=== PATIENT | female | born 1955 | race Caucasian/White ===

== ENCOUNTER 2016-11-11 02:27 | Observation (INO) | payer OTHER ==
[~2016-11-11] VITALS: Ht 165.1 cm; Wt 72.0 kg
[2016-11-11] VITALS (10 sets, daily range): BP systolic 171–206; BP diastolic 81–99; PULSE 66–94; RESP 16–18; TEMP 97.5–98.6; O2SAT 96–99
[~2016-11-11 02:27] MED LIST: ATOR1TAB18 PO; BUTA1CAP PO; DICY10 PO; FURO20TA PO; I-VITAB2; LEVEMIR SQ; LISI10TA3 PO; MOBI15TA PO; OYST500T77 PO; POTA10CA PO; SINE10100 PO; TEMA15CA PO
[2016-11-11] MEDS ORDERED: TRAM50TA PO (03:02)
[2016-11-11] MEDS ORDERED: PROT40TA PO (03:02)
[2016-11-11] MEDS ORDERED: DICY10 PO (03:02)
[2016-11-11] MEDS ORDERED: LORA1TAB12 PO (03:02)
[2016-11-11] MEDS ORDERED: ASPIRIN 81 MG CHEW TAB CHEW ONE (03:15)
[2016-11-11] MEDS ORDERED: SODIUM CHLORIDE 0.9% FLUSH 5 ML FLUSH IVF PRN ×2 (03:15→05:15)
[2016-11-11] MEDS ORDERED: METOCLOPRAMIDE INJ 10 MG in SODIUM CHLORIDE 0.9% INJ 50 ML IV ONE (03:15)
[2016-11-11] MEDS ORDERED: SODIUM CHLOR 0.9% 1000 ML INJ 1,000 ML IV ONE (03:15)
[2016-11-11] MEDS ORDERED: diphenhydrAMINE HCL 50 MG/ML VIAL IV PUSH ONE (03:15)
[2016-11-11 03:18] LABS: AUTOMATED NEUTROPHIL # 7.4 TH/MM3 (1.8-7.7); BASOPHIL # 0.1 TH/MM3 (0-0.2); BASOPHIL % 1.1 % (0.0-2.0); EOSINOPHIL # 0.2 TH/MM3 (0-0.4); HEMATOCRIT 40.4 % (35.0-46.0); HEMO FLAGS DIFF FINAL; LYMPH % 26.7 % (9.0-44.0); LYMPHOCYTE # 3.1 TH/MM3 (1.0-4.8); MEAN CELL VOLUME 91.4 FL (80.0-100.0); MEAN CORPUSCULAR HEMOGLOBIN 31.3 PG (27.0-34.0); MEAN CORPUSCULAR HGB CONC 34.2 % (32.0-36.0); MONO % 6.6 % (0.0-8.0); NEUT % 63.6 % (16.0-70.0); PLATELET COUNT 325 TH/MM3 (150-450); RED BLOOD COUNT 4.42 MIL/MM3 (4.00-5.30); RED CELL DISTRIBUTION WIDTH 12.7 % (11.6-17.2); WHITE BLOOD COUNT 11.6 TH/MM3 (4.0-11.0)
[2016-11-11 03:26] LABS: APTT (PATIENT) 25.4 SEC (24.3-30.1); PROTHROMBIN TIME - PATIENT 10.5 SEC (9.8-11.6)
--- NOTE | 2016-11-11 03:27 | RADRPT ---
EXAM DATE/TIME: 11/11/2016 03:16 [place] COMPARISON: No previous studies available for comparison. INDICATIONS : Pt having vomiting and upper abdominal pain. MEDICAL HISTORY : Hypertension. HIV. SURGICAL HISTORY : Tonsillectomy. ENCOUNTER: Initial ACUITY: 1 day PAIN SCORE: 8/10 LOCATION: Bilateral chest FINDINGS: The cardiac silhouette is enlarged in transverse diameter. The lungs are free of acute parenchymal op acity. No effusions are identified. Osseous structures are intact. CONCLUSION: Cardiomegaly. No acute cardiopulmonary disease. Ramon Nava MD on November 11, 2016 at 3:25 Board Certified Radiologist. This report was verified electronically.
[2016-11-11 03:36] LABS: ALT (GPT) 23 U/L (10-53); ANION GAP 9 MEQ/L (5-15); AST (GOT) 13 U/L (15-37); BICARBONATE 25.6 MEQ/L (21.0-32.0); BLOOD UREA NITROGEN 24 MG/DL (7-18); CHLORIDE 99 MEQ/L (98-107); GLOMERULAR FILTRATION RATE 38 ML/MIN (>89); MAGNESIUM 1.5 MG/DL (1.5-2.5); SODIUM (NA) 134 MEQ/L (136-145)
[2016-11-11 03:40] LABS: ALKALINE PHOSPHATASE 103 U/L (45-117); TOTAL BILIRUBIN ADULT 0.3 MG/DL (0.2-1.0)
--- NOTE | 2016-11-11 04:25 | PD ---
HPI Chief Complaint: GI Complaint Time Seen by Provider: 02:41 Travel History International Travel<30 days: No Contact w/Intl Traveler<30days: No Traveled to known affect area: No History of Present Illness HPI Patient is a 61-year-old female comes in complaining of nausea and vomiting as well as left-sided chest pain. She says that last month she bumped her head and since then she has been having headaches with nausea and vomiting. She has had a CT of her head that shows no acute abnormalities. She had an MRI performed as an outpatient that shows some nonspecific findings either associated with age or possibly the injury, no bleeding. She has been taking Zofran for vomiting. She says today the nausea and vomiting got worse and she started to feel numbness in her left arm and pain to the left side of her chest. She was worried she was having a heart attack, so she came in. On further questioning patient does admit that she has had issues with vomiting prior to the head injury. She is on Bentyl for chronic abdominal issues. She has a history of diabetes, and says she did not take her Levemir last night. She denies any abdominal pain. She denies any shortness of breath. PFSH Past Medical History Arthritis: Yes (OSTEOARTHRITIS) Heart Rhythm Problems: No Cancer: Yes (URTERINE) Cardiac Catheterization: No Cardiovascular Problems: Yes (htn on meds but did not take meds today) High Cholesterol: Yes Chemotherapy: No Chest Pain: No Congestive Heart Failure: No COPD: No Cerebrovascular Accident: No Diabetes: Yes (type 2) Patient Takes Glucophage: No Diminished Hearing: No Endocrine: Yes Gastrointestinal Disorders: Yes GERD: Yes Glaucoma: Yes Genitourinary: Yes Headaches: No Hiatal Hernia: Yes Hypertension: Yes Immune Disorder: No Implanted Vascular Access Dvce: No Kidney Stones: No Musculoskeletal: Yes Neurologic: No Psychiatric: No Reproductive: No Respiratory: No Immunizations Current: Yes Migraines: No Myocardial Infarction: No Radiation Therapy: Yes Renal Failure: No Seizures: No Sleep Apnea: No Thyroid Disease: No Ulcer: No Tetanus Vaccination: Unknown Influenza Vaccination: Yes Past Surgical History Abdominal Surgery: Yes (GALL BLADDER REMOVED) Cardiac Surgery: No Cholecystectomy: Yes Coronary Artery Bypass Graft: No Ear Surgery: No Endocrine Surgery: No Eye Surgery: No Genitourinary Surgery: No Gynecologic Surgery: Yes (IUD REMOVED BY SURGERY) Hysterectomy: Yes Neurologic Surgery: No Oral Surgery: Yes Thoracic Surgery: No Tonsillectomy: Yes Other Surgery: Yes Family History Family Myocardial Infarction: Yes Social History Alcohol Use: No Tobacco Use: No Substance Use: No Allergies-Medications (Allergen,Severity, Reaction): Coded Allergies: Iodine (Verified Adverse Reaction, Intermediate, ITCH, 11/11/16) Keflex (Verified Adverse Reaction, Intermediate, ITCH, 11/11/16) Penicillin (Verified Adverse Reaction, Intermediate, ITCH, 11/11/16) Bactrim (Verified Adverse Reaction, Mild, ITCH, 11/11/16) Reported Meds & Prescriptions Reported Meds & Active Scripts Active Reported Lorazepam 1 Mg Tab 1 Mg PO Q8H PRN Tramadol (Tramadol HCl) 50 Mg Tab 50 Mg PO Q4H PRN Bentyl (Dicyclomine HCl) 10 Mg Cap 10 Mg PO DAILY Protonix (Pantoprazole Sodium) 40 Mg Tab 40 Mg PO DAILY Fioricet (Wcpnhotrnz-Bsixfrijizlmu-Buklmxpg) 50-300-40 Mg Cap 1-2 Cap PO Q6H PRN Levemir Inj (Insulin Detemir) 1,000 unit/ 10 ML Vial 40 Units SQ BID Do not mix with any other Insulin. Temazepam 15 Mg Cap 15 Mg PO HS PRN Oyster-Terrence 500 (Calcium) 500 Mg Tab 500 Mg PO DAILY I-Bibi (Multiple Vitamins W/ Minerals) 1 Tab Tab Potassium Chloride ER (Potassium Chloride) 10 Meq Cap 10 Meq PO SAT-SUN Furosemide 20 Mg Tab 20 Mg PO SAT-SUN Lisinopril 10 Mg Tab 10 Mg PO DAILY Atorvastatin (Atorvastatin Calcium) 80 Mg Tab 80 Mg PO HS Review of Systems Except as stated in HPI: all other systems reviewed are Neg General / Constitutional: No: Fever, Chills HENT: Positive: Headaches Cardiovascular: Positive: Chest Pain or Discomfort Respiratory: No: Shortness of Breath Gastrointestinal: Positive: Nausea, Vomiting, No: Abdominal Pain Musculoskeletal: No: Myalgias Skin: No Rash, No Change in Pigmentation Neurologic: No: Weakness, Dizziness Physical Exam Narrative GENERAL: awake and alert, in no acute distress SKIN: Warm and dry. HEAD: Atraumatic. Normocephalic. EYES: Pupils equal and round. No scleral icterus. EOMI ENT: Mucous membranes pink and moist. NECK: Trachea midline. No JVD. CARDIOVASCULAR: Regular rate and rhythm. No murmur appreciated. RESPIRATORY: No accessory muscle use. Clear to auscultation. Breath sounds equal bilaterally. GASTROINTESTINAL: Abdomen soft, non-tender, nondistended. MUSCULOSKELETAL: No obvious deformities. No clubbing. No cyanosis. No edema. NEUROLOGICAL: Awake and alert. No obvious cranial nerve deficits. Motor grossly within normal limits. Normal speech. PSYCHIATRIC: Appropriate mood and affect; insight and judgment normal. Data Data Last Documented VS Vital Signs Date Time Temp Pulse Resp B/P Pulse Ox O2 Delivery O2 Flow Rate FiO2 11/11/16 04:36 77 171/82 11/11/16 04:16 18 99 Nasal Cannula 2 11/11/16 02:48 97.9 Orders Electrocardiogram (11/11/16 03:03) Complete Blood Count With Diff (11/11/16 03:03) Comprehensive Metabolic Panel (11/11/16 03:03) Magnesium (Mg) (11/11/16 03:03) Prothrombin Time / Inr (Pt) (11/11/16 03:03) Act Partial Throm Time (Ptt) (11/11/16 03:03) Troponin I (11/11/16 03:03) Lipase (11/11/16 03:03) Chest, Single Ap (11/11/16 03:03) Ecg Monitoring (11/11/16 03:03) Bilateral Bp Monitoring (11/11/16 03:03) Iv Access Insert/Monitor (11/11/16 03:03) Oximetry (11/11/16 03:03) Oxygen Administration (11/11/16 03:03) Sodium Chloride 0.9% Flush (Ns Flush) (11/11/16 03:15) Metoclopramide Inj (Reglan Inj) (11/11/16 03:15) Diphenhydramine Inj (Benadryl Inj) (11/11/16 03:15) Aspirin Chew (Aspirin Chew) (11/11/16 03:15) Sodium Chlor 0.9% 1000 Ml Inj (Ns 1000 M (11/11/16 03:15) Metoprolol Tartrate Inj (Lopressor Inj) (11/11/16 04:30) Activity Bed Rest With Brp (11/11/16 05:07) Vital Signs (Adult) Q4H (11/11/16 05:07) Cardiac Rhythm .As Directed (11/11/16 05:07) ^ Notify Dr: Other .PRN (11/11/16 05:07) ^ Notify Dr. Parameters (11/11/16 05:07) Resp Oxygen Nasal Cannula (11/11/16 ) Diet Heart Healthy (11/11/16 Breakfast) Ckmb (Isoenzyme) Profile (11/11/16 06:10) Ckmb (Isoenzyme) Profile (11/11/16 09:10) Troponin I (11/11/16 06:10) Troponin I (11/11/16 09:10) Electrocardiogram (11/11/16 06:10) Electrocardiogram (11/11/16 09:10) ^ Obtain (11/11/16 05:07) Sodium Chloride 0.9% Flush (Ns Flush) (11/11/16 05:15) Sodium Chloride 0.9% Flush (Ns Flush) (11/11/16 09:00) Admit Order (Ed Use Only) (11/11/16 ) Labs Laboratory Tests Test 11/11/16 03:10 White Blood Count 11.6 TH/MM3 Red Blood Count 4.42 MIL/MM3 Hemoglobin 13.8 GM/DL Hematocrit 40.4 % Mean Corpuscular Volume 91.4 FL Mean Corpuscular Hemoglobin 31.3 PG Mean Corpuscular Hemoglobin 34.2 % Concent Red Cell Distribution Width 12.7 % Platelet Count 325 TH/MM3 Mean Platelet Volume 8.6 FL Neutrophils (%) (Auto) 63.6 % Lymphocytes (%) (Auto) 26.7 % Monocytes (%) (Auto) 6.6 % Eosinophils (%) (Auto) 2.0 % Basophils (%) (Auto) 1.1 % Neutrophils # (Auto) 7.4 TH/MM3 Lymphocytes # (Auto) 3.1 TH/MM3 Monocytes # (Auto) 0.8 TH/MM3 Eosinophils # (Auto) 0.2 TH/MM3 Basophils # (Auto) 0.1 TH/MM3 CBC Comment DIFF FINAL Differential Comment Prothrombin Time 10.5 SEC Prothromb Time International 1.0 RATIO Ratio Activated Partial 25.4 SEC Thromboplast Time Sodium Level 134 MEQ/L Potassium Level 4.0 MEQ/L Chloride Level 99 MEQ/L Carbon Dioxide Level 25.6 MEQ/L Anion Gap 9 MEQ/L Blood Urea Nitrogen 24 MG/DL Creatinine 1.39 MG/DL Estimat Glomerular Filtration 38 ML/MIN Rate Random Glucose 302 MG/DL Calcium Level 9.2 MG/DL Magnesium Level 1.5 MG/DL Total Bilirubin 0.3 MG/DL Aspartate Amino Transf 13 U/L (AST/SGOT) Alanine Aminotransferase 23 U/L (ALT/SGPT) Alkaline Phosphatase 103 U/L Troponin I 0.02 NG/ML Total Protein 6.7 GM/DL Albumin 3.3 GM/DL Lipase 305 U/L MDM Medical Decision Making Medical Screen Exam Complete: Yes Emergency Medical Condition: Yes Medical Record Reviewed: Yes Interpretation(s) ECG shows NSR at 83. No ST elevation or depression. Differential Diagnosis Gastroparesis vs gastritis vs ACS Narrative Course Patient is a 61 year old female who comes in complaining of vomiting and chest pain. Exam shows no acute abnormalities. IV established, attached to the cardiac rehabilitation program director. Labs sent show a glucose of 302. Troponin is negative. Given reglan, benadryl, Aspirin. Patient reports feeling better after medications. We'll place an chest pain center for further management of chest pain. Diagnosis Primary Impression: Chest pain Qualified Code: R07.9 - Chest pain, unspecified type Admitting Information Admitting Physician Requests: Donna Alcantar MD Nov 11, 2016 04:25
[2016-11-11] MEDS ORDERED: METOPROLOL TARTRATE 5 MG/5 ML VIAL IV PUSH ONE (04:30)
[2016-11-11] MEDS ORDERED: cloNIDine HCL 0.1 MG TAB PO PRN (08:15)
[2016-11-11] MEDS ORDERED: amLODIPine BESYLATE 5 MG TAB PO ONE (08:30)
[2016-11-11] MEDS ORDERED: SODIUM CHLORIDE 0.9% FLUSH 5 ML FLUSH IVF SCH (09:00)
[2016-11-11] MEDS ORDERED: ONDANSETRON ODT 4 MG TAB PO PRN (15:45)
[2016-11-11] MEDS ORDERED: LISI-515 PO (17:07)
--- NOTE | 2016-11-11 17:08 | HHI.DCPOC ---
Discharge Care Plan Diagnosis: (1) Atypical chest pain (2) Type 2 diabetes mellitus (3) Cephalgia Goals to Promote Your Health * To prevent worsening of your condition and complications * To maintain your health at the optimal level Directions to Meet Your Goals Take your medications as prescribed Follow your dietary instruction Follow activity as directed Keep your appointments as scheduled Take your immunizations and boosters as scheduled If your symptoms worsen call your PCP, if no PCP go to Urgent Care Center or Emergency Room Smoking is Dangerous to Your Health. Avoid second hand smoke Call the 24-hour hour crisis hotline for domestic abuse at Demetria Londono Nov 11, 2016 17:08
[2016-11-11] MEDS ORDERED: LISINOPRIL 20 MG TAB PO ONE (17:15)
--- NOTE | 2016-11-11 19:20 | MH ---
cc: GREG VALENZUELA MD DATE OF ADMISSION: 11/11/2016 DATE OF : 1955 CHIEF COMPLAINT Chest pain and headache. HISTORY OF PRESENT ILLNESS This is a 51-year-old female who presented to the emergency room for further evaluation with an onset of left anterior chest pain and left axillary pain described as "spasms, little shooting pains". There was radiation to her left arm although this was not pain it was numbness. Duration was a few minutes, no more than two minutes in fact for both the numbness and her chest spasms. No known precipitating factors or relieving factors. She has not had chest pain like this in the past in fact she is more concerned about a headache. She hit her head at work 10/14/16 and since this time she has had a headache daily with nausea, vomiting and hypertension in fact she states she woke up this morning about 1:30 to throw-up and that is when she developed her chest pain. She follows with Dr. Jose and is awaiting a neurologist consult. PAST MEDICAL HISTORY GERD. Type 2 diabetes. Hypertension. Hyperlipidemia. Osteoarthritis. Colitis. Mild coronary artery disease. PAST SURGICAL HISTORY Radical hysterectomy. Cholecystectomy. Tonsillectomy. Adenoidectomy. SOCIAL HISTORY Currently she is not working as she is under Workman's Comp but she was working for [employer] and was quite active until hitting her head last month. She is a lifelong nonsmoker. Denies any alcohol or illegal drug use. Does have known diabetes, hypertension and is taking a cholesterol medication. PAST CARDIAC TESTING She had a cardiac catheterization 11/18/10 which showed mild coronary disease in the proximal LAD, unchanged from her previous LAD of 30% in the proximal area. She has not had any recent stress testing. ALLERGIES PENICILLIN, BACTRIM, IODINE, KEFLEX, AND SULFA DRUGS. MEDICATIONS Current medications include - Zofran 8 mg p.o. q.8 hours p.r.n. for nausea. Potassium 10 mg on Monday and Monday. Calcium tablet daily. Protonix 40 mg daily. Fioricet one-to-two tablets q.6 hours p.r.n. for headache. Lisinopril 20 mg daily. Bentyl 10 mg daily. Ativan 1 mg q.8 hours p.r.n. as needed for anxiety. Atorvastatin 80 mg daily. Levemir 40 units b.i.d. Furosemide 20 mg on Monday and Monday. Multivitamin daily. REVIEW OF SYSTEMS GENERAL: No fatigue or recent illness or malaise. Reports a daily headache. No fevers, recent sickness or change in appetite. HEENT: Reports a daily headache. No vision changes. No weakness of her extremities. No dysphagia. Has had a CAT scan completed 10/21/16 which was unremarkable. She has also had an outpatient MRI recently completed, she does not have the results of that. CARDIOVASCULAR: As stated above. She has been chest pain free since arrival to the emergency room. No palpitations. Intermittent leg pain. Occasional dizziness which she relates this to when her headache is quite severe. RESPIRATORY: No shortness of breath, cough, wheeze, hemoptysis. ABDOMEN: No bowel changes, diarrhea, constipation, pain, distention, blood in the stool or dark stool. Reports nausea and vomiting again with her headaches. GENITOURINARY: No dysuria, urgency, frequency or hematuria. EXTREMITIES: No lower leg edema or pain. MUSCULOSKELETAL: No change in ROM. NEUROLOGIC: No difficulty with balance, motory or sensory deficits, loss of consciousness, syncopal episode, vertigo, seizure activity, or change in memory. PSYCHIATRIC: No anxiety or depression. Reports situational stress as she just wants to continue to work and to feel better, although she has not been able to do this since hitting her head. SKIN: She has no concerning lesions or rashes. PHYSICAL EXAMINATION VITAL SIGNS: Temperature 98.6, pulse 87, respiratory 18, blood pressure on admission 206/99 and blood pressure 178/84. GENERAL: She is alert, well-nourished, well-developed, in no acute distress, a pleasant female. HEENT: Head is normocephalic, atraumatic. Eyes: Sclerae are clear. Conjunctivae without injection. Pupils are equal and round. Mucous membranes are pink and moist. NECK: Neck is supple. Trachea is midline. CARDIOVASCULAR: She has a regular rate and rhythm without murmur, rub or gallop. No JVD. S1, S2. No S3. No S4. No carotid bruits. RESPIRATORY: Clear lungs throughout bilaterally with no crackles, wheeze or rhonchi. She is nonlabored. Symmetrical chest rise. ABDOMEN: Soft, nontender, nondistended. Positive bowel tones. No masses. BACK: No scoliosis. No CVAT. EXTREMITIES: Pulses +2 x4. No dependent edema. MUSCULOSKELETAL: Normal tone x4. Nontender. No obvious deformities. NEUROLOGIC: CN II through XII are grossly intact. Motor strength 5/5. Gait is within normal limits. PSYCHIATRIC: She is alert and oriented x3. Has appropriate mood, insight and judgment and slightly anxious. SKIN: Normal turgor, normal texture. Warm and dry. No lesions. LABORATORY CBC has a WBC of 11.6. CMP has a creatinine of 1.39, estimated GFR of 38, random glucose 302, BUN of 24, otherwise unremarkable. Three sets of cardiac enzymes are negative. Coagulation is a negative. IMAGING Chest x-ray read by the radiologist has an impression of cardiomegaly. No acute pulmonary disease. Three EKGs show a normal sinus rhythm with a left axis deviation and septal Q waves, this is changed from prior EKGs. ASSESSMENT AND PLAN Chest pain. The patient has been admitted to the [facility]. She was ruled out with three sets of EKGs and cardiac enzymes. She was also seen and evaluated by Dr. Greg Valenzuela. Given the fact of EKG changes with a Q wave in her septal lead, we have encouraged her to have a treadmill stress test. She is agreeable to this plan of care. She underwent a treadmill which was negative for any ischemia and no ST or T segment changes. She has been encouraged to followup with her primary care provider and will be discharged later this afternoon. Hypertension. Reordered her lisinopril 20 mg also clonidine p.r.n. and one dose of amlodipine 5 mg provided. Have encouraged her to again take blood pressure log the next couple of weeks and followup with her primary care provider with these results. Diabetes. Sliding scale insulin coverage. We have called Dr. Jose and discussed the case with him and have offered if he would prefer a neurology consult at this time. Dr. Jose states he has actually called the neurologist himself and has scheduled her an appointment for the of this month and at this time there is no need to keep her further if her cardiac workup is unremarkable. He will followup with her in the office next week or as needed. This has all been discussed with the patient and her daughter. The patient is agreeable to this plan of care. DICTATED BY: EVIE Walsh MD CHRISTINA Zapata/MARY /6:04 PM /8:43 AM
--- NOTE | 2016-11-12 19:49 | EKG ---
Date Performed: 11/11/2016 Time Performed: 06:26:03 PTAGE: 61 years EKG: Sinus rhythm MARKED LEFT AXIS DEVIATION LEFT VENTRICULAR HYPERTROPHY AND ST-T CHANGE POSSIBLE SEPTAL MYOCARDIAL I NFARCTION ABNORMAL ECG PREVIOUS TRACING : 11/11/2016 02.50 DOCTOR: Agus Florence Interpretating Date/Time 11/12/2016 19:47:39
--- NOTE | 2016-11-12 21:34 | EKG ---
Date Performed: 11/11/2016 Time Performed: 02:50:52 PTAGE: 61 years EKG: Sinus rhythm MARKED LEFT AXIS DEVIATION LEFT VENTRICULAR HYPERTROPHY AND ST-T CHANGE POSSIBLE SEPTAL MYOCARDIAL I NFARCTION ABNORMAL ECG PREVIOUS TRACING : 07/27/2015 15.05 DOCTOR: Agus Florence Interpretating Date/Time 11/12/2016 21:33:11
--- NOTE | 2016-11-12 22:34 | EKG ---
Date Performed: 11/11/2016 Time Performed: 08:37:53 PTAGE: 61 years EKG: Sinus rhythm MARKED LEFT AXIS DEVIATION VOLTAGE CRITERIA FOR LVH WITH ST-DEPRESSION POSSIBLE SEPTAL MYOCARDIAL IN FARCTION ABNORMAL ECG PREVIOUS TRACING : 11/10/2016 09.59 DOCTOR: Agus Florence Interpretating Date/Time 11/12/2016 22:33:55
--- NOTE | 2016-11-12 23:26 | TR ---
Date Performed: 11/11/2016 Time Performed: 16:31:00 DOCTOR: Agus Florence DRUG LIST: CLINICAL HISTORY: CHEAT PAIN REASON FOR TEST: REASON FOR ENDING: OBSERVATION: CONCLUSION: Kervin protocol completed. Stopped sec to reaching target heart rate and leg fatigue. Maximum YS=304 Target HR Achieved=87.0% Total Exercise Time=3:30 Max bp 206/82. No reprod chest disc omfort/sob. No ectopy, no st t seg changes to sugg ischemia. Poor exercise tolerance. Hypertensive bp response. Recovery quick and unremarkable. COMMENTS: CONCLUSION: Normal exercise treadmill. No evidence of ischemia.
== END 2016-11-11 18:56 | disposition home or self-care (01) ==
LOC: NEPC 02:27 → NEDA 05:10 → NEPFCDU 07:47
PROVIDERS: ADMIT Internal Medicine Cardiovascular Disease; ATTEND Internal Medicine Cardiovascular Disease
DX: R07.89 Other chest pain (principal); I10 Essential (primary) hypertension; R94.31 Abnormal electrocardiogram [ECG] [EKG]; E78.5 Hyperlipidemia, unspecified; E11.9 Type 2 diabetes mellitus without complications; E78.00 Pure hypercholesterolemia, unspecified; K21.9 Gastro-esophageal reflux disease without esophagitis; H40.9 Unspecified glaucoma; M19.90 Unspecified osteoarthritis, unspecified site
CPT/HCPCS: 71010; 80053; 82550; 83690; 83735; 84484; 85025; 85610; 85730; 93005; 93017; 96365; 96375; 99285; G0378; J1200; J2765; J7030